=== PATIENT | female | born 1945 | race Hispanic/Latino ===

== ENCOUNTER 2017-05-13 08:16 | Emergency (ER) | payer MEDICARE ==
[~2017-05-13] VITALS: Ht 165.1 cm; Wt 80.0 kg
[~2017-05-13 08:16] MED LIST: AMLODIPINE10 MG PO; AMLODIPINE5 MG PO; CALCIUM + D600 MG PO; CIPROFLOXACN500 MG PO; FLAGYL500 MG PO; METOPROLOL TART50 MG PO; NAPROXEN500 MG PO; PRAVASTATIN SOD20 MG PO; PRAVASTATIN SOD40 MG PO; PRILOSEC20 MG/CAP PO; PROTONIX40 M2 PO; VITAMIN D3400 UNI2 PO; ZOFRAN ODT8 MG OR
[2017-05-13 09:11] LABS: HEMATOCRIT 39.9 % (37.0-47.0); HEMOGLOBIN 13.4 g/dl (12.0-16.0); IMMATURE GRANULOCYTES 0.5 % (0.0-1.0); MEAN CELL VOLUME 88.7 fL CALC (80.0-100.0); MEAN CORPUSCULAR HGB 29.8 pG CALC (26.0-32.0); MEAN CORPUSCULAR HGB CONC 33.6 g/L CALC (32.0-36.0); NEUT# 15.23 thou/uL (2.00-7.15); RED BLOOD COUNT 4.5 mill/uL (4.20-5.60); RED CELL DISTRI WIDTH 13.2 % (11.5-15.5)
[2017-05-13 09:52] LABS: ALBUMIN 3.4 g/dL (3.2-5.0); ALKALINE PHOSPHATASE 65 u/l (38-126); AMYLASE < 30 u/l (30-110); ANION GAP 13 (6-22 (CALC)); BILIRUBIN, TOTAL 0.6 mg/dL (0.0-1.4); BUN 8 mg/dL (8-23); BUN/CREATININE RATIO 9 (12-20 (CALC)); CALCIUM 8.4 mg/dL (8.4-10.2); CARBON DIOXIDE 20 mmol/l (22-30); CHLORIDE 107 mmol/l (95-108); CREATININE 0.9 mg/dL (0.5-1.0); GFR > 60 ML/MIN (>=60 (CALC)); GFR FOR AFR.AMER. > 60 ML/MIN (>=60 (CALC)); GLUCOSE 114 mg/dL (82-115); LIPASE 30 u/l (23-300); POTASSIUM 2.9 mmol/l (3.5-5.1); SGOT/AST 18 u/l (9-36); SGPT/ALT 24 u/l (11-66); SODIUM 136 mmol/l (137-146); TOTAL PROTEIN 6.3 g/dL (6.3-8.2)
[2017-05-13 09:56] LABS: C. DIFFICILE TOXIN A&B NEGATIVE (NEGATIVE)
[2017-05-13] MEDS ORDERED: AZITHROMYCIN500 MG PO (14:39)
[2017-05-13 14:43] VITALS: BP 117/83
== END 2017-05-13 14:45 | disposition home or self-care (01) ==
LOC: ED 08:16
PROVIDERS: Emergency Medicine
DX: A04.5 Campylobacter enteritis (principal); E87.6 Hypokalemia; R50.9 Fever, unspecified; M79.1 Myalgia; I10 Essential (primary) hypertension

== ENCOUNTER → 2018-12-04 | Outpatient (REF) | payer MEDICARE, MEDICAID ==
[~2018-12-04] MED LIST changes: +AZITHROMYCIN500 MG PO
[2018-12-04 09:49] LABS: HEMATOCRIT 43.2 % (37.0-47.0); HEMOGLOBIN 14.1 g/dl (12.0-16.0); IMMATURE GRANULOCYTES 0.2 % (0.0-5.0); MEAN CELL VOLUME 89.6 fL CALC (80.0-100.0); MEAN CORPUSCULAR HGB 29.3 pG CALC (26.0-32.0); MEAN CORPUSCULAR HGB CONC 32.6 g/L CALC (32.0-36.0); NEUT# 5.64 thou/uL (2.00-7.15); RED BLOOD COUNT 4.82 mill/uL (4.20-5.60); RED CELL DISTRI WIDTH 13.2 % (11.5-15.5)
[2018-12-04 09:56] LABS: ANION GAP 11 (6-22 (CALC)); BUN 12 mg/dL (8-23); BUN/CREATININE RATIO 15 (12-20 (CALC)); CARBON DIOXIDE 28 mmol/l (22-30); CHLORIDE 106 mmol/l (95-108); CREATININE 0.8 mg/dL (0.5-1.0); GFR > 60 ML/MIN (>=60 (CALC)); GFR FOR AFR.AMER. > 60 ML/MIN (>=60 (CALC)); POTASSIUM 3.6 mmol/l (3.5-5.1); SODIUM 142 mmol/l (137-146)
[2018-12-04 10:03] LABS: ACT PARTIAL THROMBO TIME 23.8 SECONDS (20.0-32.5); PROTHROMBIN TIME 10.2 SECONDS (9.0-12.5)
== END | disposition home or self-care (01) ==
LOC: CT 09:16 → LAB 09:16 → CT 10:00
PROVIDERS: ATTEND Surgery Vascular Surgery
DX: I71.4 Abdominal aortic aneurysm, without rupture (principal)

== ENCOUNTER → 2018-12-09 | Outpatient (REF) | payer MEDICARE, MEDICAID | END | disposition home or self-care (01) | LOC: CT 10:46 | PROVIDERS: ATTEND Surgery Vascular Surgery | DX: I71.4 Abdominal aortic aneurysm, without rupture (principal) | CPT/HCPCS: Q9967 ==

== ENCOUNTER 2021-09-19 06:58 | Inpatient (IN) | payer MEDICARE, MEDICAID ==
[~2021-09-19] VITALS: Ht 165.1 cm; Wt 69.0 kg
[2021-09-19] VITALS (9 sets, daily range): BP systolic 112–139; BP diastolic 58–75
[~2021-09-19 06:58] MED LIST changes: +ATORVASTATIN CA80 MG PO; +D31000 UNIT PO
--- NOTE | 2021-09-19 11:46 | NUR ---
REPORT RECEIVED FROM TOMASZ IRWIN RN.
--- NOTE | 2021-09-19 11:57 | NUR ---
PATIENT CAME FROM OR VIA BED. LICENSED WEIGHER IN ROOM TO OBTAIN VS. SAFETY PRECAUTIONS REINFROCED AND CALL LIGHT IN REACH.
--- NOTE | 2021-09-19 12:40 | NUR ---
ASSESSMENT DONE. PATIENT IS ALERT AND ORIENT X3. RESPS EVEN AND UNLABORED. PATIENT HAS BEEN USING THE INCENTIVE SPIROMETRY. ICE CHIPS PROVIDED. X4 ABD DERMABOND DRESSING DCI. PATIENT STATED PAIN IN ABD 4/10 MEDICATED PATIENT WITH DILAUDID. SAFETY PRECAUTIONS REINFORCED AND CALL LIGHT IN REACH.
--- NOTE | 2021-09-19 15:58 | NUR ---
PATIENT STATED PAIN IN ABD 01/01. MEDICATED PATIENT WITH DILAUDID. PATIENT STATED SHE FEELS BLOATED. ENCOURAGE PATIENT TO MOVE MORE IN BED. PATIENT STATED SHE WANTS TO SIT IN CHAIR LATER. FAMILY MEMBER IN ROOM .CALL LIGHT IN REACH.
--- NOTE | 2021-09-19 17:40 | NUR ---
ASSISTED PATIENT TO THE RECLINER AND PATIENT TOLERATED WELL. ABD BINDER APPLIED. PATIENT DENIES ANY OTHER NEEDS. CALL LIGHT IN REACH.
--- NOTE | 2021-09-19 19:25 | NUR ---
PATIENT ALERT AND ORIENTED. ABLE TO MAKE NEEDS KNOWN. ASSESSMENT COMPLETE. NO COMPLAINTS VOICED AT THIS TIME. MIDLINE INCISION WITH DRY SMALL AMOUNT OF BLOOD OBSERVED. ABDOMINAL BINDER REMAINS IN PLACE. ENCOURAGED PATIENT TO USE INCENTIVE SPRIOMETER. CALL LIGHT AND BELONGINGS REMAIN IN REACH.
--- NOTE | 2021-09-20 00:15 | NUR ---
PATIENT IN BED. SCHEDULED TORADOL GIVEN AND IV ABT. PATIENT VOICED CONCERN ABOUT NEEDING TO BURP AND PASS GAS AND UNABLE. REEDUCATED PATIENT ON THE NEED TO AMBULATE TO HELP MOVE HER BOWELS AROUND. THIS NURSE INSTRUCTED THE PATIENT TO USE CALL LIGHT TO CALL FOR ASSISTANCE WITH AMBULATION. PATIENT VOICED, ''IF I CANT GET HELP HERE I WILL GO TO [place]''. AMBULATED PATIENT TO RESTROOM AND BACK. PATIENT HAD LARGE BELCH. GOWN CHANGED TO NEW ONE. PROVIDED PATIENT SMALL AMOUNT OF ICE CHIPS. CALL LIGHT AND BELONGINGS REMAIN IN REACH.
--- NOTE | 2021-09-20 04:20 | NUR ---
PATIENT RESTING IN BED QUIETLY. NO SIGNS OF PAIN OR DISTRESS NOTED AT THIS TIME. CALL LIGHT AND BELONGINGS REMAIN IN REACH.
[2021-09-20 04:29] VITALS: BP 155/80
--- NOTE | 2021-09-20 04:45 | NUR ---
HELPED PATIENT AMBULATE TO RESTROOM AND BACK. TOLERATED WELL. ABLE TO KEEP A BALANCE. BURPING IN RESTROOM. CALL LIGHT AND BELONGINGS REMAIN IN REACH.
[2021-09-20 05:42] LABS: HEMATOCRIT 38.5 % (37.0-47.0); HEMOGLOBIN 12.6 g/dl (12.0-16.0); IMMATURE GRANULOCYTES 0.2 % (0.0-5.0); MEAN CELL VOLUME 94.1 fL CALC (80.0-100.0); MEAN CORPUSCULAR HGB 30.8 pG CALC (26.0-32.0); MEAN CORPUSCULAR HGB CONC 32.7 g/dL CAL (32.0-36.0); NEUT# 14.95 thou/uL (2.00-7.15); RED BLOOD COUNT 4.09 mill/uL (4.20-5.60); RED CELL DISTRI WIDTH 13.1 % (11.5-15.5)
[2021-09-20 06:01] LABS: ANION GAP 8 (6-22 (CALC)); BUN 11 mg/dL (8-23); BUN/CREATININE RATIO 13 (12-20 (CALC)); CARBON DIOXIDE 23 mmol/l (22-30); CHLORIDE 105 mmol/l (95-108); CREATININE 0.9 mg/dL (0.5-1.0); GFR > 60 ML/MIN (>=60 (CALC)); GFR FOR AFR.AMER. > 60 ML/MIN (>=60 (CALC)); POTASSIUM 3.4 mmol/l (3.5-5.1); SODIUM 133 mmol/l (137-146)
--- NOTE | 2021-09-20 07:00 | NUR ---
SHIFT CHANGE REPORT, PT ALERT AND ORIENTED RESTING IN BED, C/O ABD PAIN @ 12/01, IVF INFUSING, GASPAR CATHETER IN PLACE WITH MARQUES URINE BUT REMOVED PER MD'S ORDER, ABD BINDER IN PLACE, SCD IN PLACE, ENCOURAGED TO USE IS AT BEDSIDE EVERY HOUR WHILE AWAKE, CALL ROBIN IN REACH AND BED LOCKED IN LOWEST POSITION.
[2021-09-20 08:03] VITALS: BP 124/68
[2021-09-20 10:50] VITALS: BP 140/82
--- NOTE | 2021-09-20 12:00 | NUR ---
ASISTED WITH AMBULATION AND SAT UP IN RECLINER FOR MEAL, C/O BEING COLD, WARM BLANKETS GIVEN, CALL ROBIN IN REACH.
[2021-09-20 15:41] VITALS: BP 154/71
--- NOTE | 2021-09-20 16:00 | NUR ---
RESTING IN BED UNDER COVERS, COMFORTABLE BUT STATES SHE DOES NOT WANT TO GET OOB SHE IS COLD, CONCERN ADDRESSED TO BEST OF ABILITY, NO C/O PAIN, CALL ROBIN IN REACH.
[2021-09-20 19:00] VITALS: BP 152/80
--- NOTE | 2021-09-20 19:25 | NUR ---
PATIENT ALERT AND ORIENTED. ABLE TO MAKE NEEDS KNOWN. ASSESSMENT COMPLETE. NO SIGNS OF DISTRESS NOTED. NO COMPLAINTS OF PAIN AT THIS TIME. MIDLINE INCISION TO ABDOMEN APPEAR CDI. CALL LIGHT AND BELONGINGS REMAIN IN REACH.
--- NOTE | 2021-09-21 | NUR ---
PATIENT RESTING IN BED QUIETLY. SCHEDULED TORADOL GIVEN PER ORDERS. NO COMPLAINTS VOICED AT THIS TIME. CALL LIGHT AND BELONGINGS REMAIN IN REACH.
[2021-09-21 04:00] VITALS: BP 152/95
--- NOTE | 2021-09-21 04:15 | NUR ---
PATIENT RESTING IN BED. NO SIGNS OF DISTRESS NOTED. NO COMPLAINTS OF PAIN VOICED AT THIS TIME BY PATIENT. USES MULTIPLE LAYERS OF BLANKETS FOR COMFORT. AMBULATES TO BATHROOM NEEDED. CALL LIGHT AND BELONGINGS REMAIN IN REACH.
[2021-09-21 04:27] VITALS: BP 151/79
[2021-09-21 08:00] VITALS: BP 158/67
--- NOTE | 2021-09-21 08:00 | NUR ---
PT SLEEPING UPON ENTERING ROOM. STATES ABDOMEN IS TENDER TO TOUCH. IS ABLE TO PASS GAS BUT HAS NOT BEEN ABLE TO HAVE BM. ASSESSMENT AND VITALS ALLOWED AT THIS TIME. LUNG SOUNDS CLEAR UPPER/LOWER LOBES. BREATHING IS EVEN AND UNLABORED. BOWEL SOUNDS ARE HYPOACTIVE X4. HEART SOUNDS ARE REGULAR. IV SITE LOCATED ON THE 20G RAC INFUSING D5 1/2 NS PER EMAR ORDER. FLUSHED WITH NO RESISTANCE. FALL PRECAUTIONS ARE IN PLACE. ENCOURAGED PT TO USE CALL LIGHT. CALL LIGHT AND PERSONAL ITEMS WITHIN REACH.
--- NOTE | 2021-09-21 13:36 | NUR ---
PT LAYING DOWN UPON ENTERING ROOM. STATES NO PAIN JUST DISCOMFORT IN ABD AREA. MIDLINE INCISON IS CDI NOT SIGN OF PURULENT DRAINAGE OR ANY FOUL ODOR. IV PATENT. INFUSING D5 NS 1/2 80ML/HR WITH NO COMPLICATION. FALL PRECAUTIONS IN PLACE. CALL LIGHT WITHIN REACH.
[2021-09-21 14:16] VITALS: BP 142/74
--- NOTE | 2021-09-21 16:00 | NUR ---
PT SLEEPING. NO DISTRESS NOTED. CALL LIGHT WITHIN REACH.
[2021-09-21 19:00] VITALS: BP 156/94
--- NOTE | 2021-09-21 19:20 | NUR ---
PT RESTING IN BED, NO SIGNS OF DISTRESS NOTED, RESP EVEN AND UNLABORED. PT ALERT AND ORIENTED X3, NO EDEMA. ABD DISTENDED, MIDLINE DRESSING TO ABD CDI, X3 SMALL DRESSING, CDI. BS HYPOACTIVE NO BM OR PASSING GAS, ABD BINDER REAPPLIED. SCD'S IN PLACE, DISCUSSED INCENTIVE SPIROMETER AND ENCOURAGED IT'S USE. RN FROM DAYS AT BEDSIDE FOR PAIN MEDICATION. ASSESSMENT COMPLETED, CALL LIGHT IN REACH,CONTINUE TO MONITOR.
--- NOTE | 2021-09-21 23:29 | NUR ---
PT REQUESTING TO SIT UP IN BED, PT ASSISTED TO SIDE OF BED, NO SIGNS OF DISTRESS NOTED, RESP EVEN AND UNLABORED. PT DENIES ANY PAIN AT THIS TIME. CALL LIGHT IN REACH,CONTINUE TO MONITOR.
--- NOTE | 2021-09-22 02:00 | NUR ---
PT ASSISTED TO RECLINER, NO SIGNS OF DISTRESS NOTED, RESP EVEN AND UNLABORED. PT VOICES NO NEEDS OR COMPLAINTS AT THIS TIME, CALL LIGHT IN REACH,CONTINUE TO MONITOR.
[2021-09-22 04:27] VITALS: BP 164/80
--- NOTE | 2021-09-22 05:00 | NUR ---
PT RESTING IN BED WITH EYES CLOSED, NO SIGNS OF DISTRESS NOTED, RESP EVEN AND UNLABORED. CALL LIGHT IN REACH,CONTINUE TO MONITOR.
--- NOTE | 2021-09-22 07:31 | NUR ---
DR. MAYFIELD AT BEDSIDE DISCUSSING POC.
[2021-09-22 08:00] VITALS: BP 141/79
--- NOTE | 2021-09-22 08:00 | NUR ---
PT SITTING ON RECLINER WATCHING TV UPON ENTERING ROOM. STATES TOLERATED BREAKFAST WELL. NO N/V/PAIN AT THIS TIME. DRESSING IS CDI. IV SITE LOACTED ON THE RAC 20G FLUSHED WITH NO RESISTANCE. STATES PASSING LITTLE FLATUS BUT NO BM SO FAR. ASSESSMENT AND VITALS ALLOWED AT THIS TIME. LUNG SOUNDS CLEAR UPPER/LOWER LOBES. HEART SOUNDS REGULAR. BREATHING IS EVEN AND UNLABORED. BOWELS ARE HYPOACTIVE X4. ABD IS TENDER TO TOUCH. ABD BINDER IN PLACE. IS AT BEDSIDE. ENCOUARGED PT TO USE CALL LIGHT. FALL PRECAUTIONS IN PLACE. CALL LIGHT WITHIN REACH.
--- NOTE | 2021-09-22 12:02 | NUR ---
PT SITTING ON RECLINER EATING LUNCH AT THIS TIME. PT IS NOW ON REGULAR DIET. STATES HAVING PAIN IN ABD AREA. IV PATENT. FLUIDS HAVE BEEN DISCONTINUED. FLUSHED WITH NO RESISTANCE. FALL PRECAUTIONS IN PLACE. STATES NO OTHER NEEDS AT THIS TIME. CALL LIGHT WITHIN REACH.
--- NOTE | 2021-09-22 12:12 | NUR ---
PT STATES PASSING VERY LITTLE FLATUS. TOLERATED REGULAR FOOD WELL. NO N/V AT THIS TIME. CALL LIGHT WITHIN REACH
[2021-09-22 14:35] VITALS: BP 136/66
--- NOTE | 2021-09-22 15:57 | NUR ---
PT LAYING IN BED WATCHING TV AT THIS TIME. SCD ON AND IN PLACE. STATES NO PAIN AT THIS TIME. IV PATENT, SALINE LOCKED. DRESSING IS CDI WITH ABD BINDER IN PLACE. PT STATES STILL PASSING LITTLE FLATUS BUT NO BM. IS AT BEDSIDE. STATES NO OTHER NEEDS AT THIS TIME. CALL LIGHT WITHIN REACH.
[2021-09-22 19:00] VITALS: BP 159/77
--- NOTE | 2021-09-22 19:15 | NUR ---
PT RESTING IN BED, NO SIGNS OF DISTRESS NOTED, RESP EVEN AND UNLABORED. PT ALERT AND ORIENTED X3, DISCUSSED POC, PT STATES SHE HAS BEEN AMBULATING AND HAS PASSED GAS, NO BM. BS HYPOACTIVE X4, MIDLINE DRESSING TO ABD CDI, X3 SMALL DRESSINGS CDI, ABDOMINAL BINDER REAPPLIED, IS AT BEDSIDE, ENCOURAGED IT'S USE. ASSESSMENT COMPLETED, CALL LIGHT IN REACH,CONTINUE TO MONITOR.
--- NOTE | 2021-09-22 19:35 | NUR ---
PT AMBULATING IN HALLWAY, TOLERATING WELL. CONTINUE TO MONITOR.
--- NOTE | 2021-09-22 20:37 | NUR ---
PT BACK IN BED, C/O PAIN 3/10 AFTER AMBULATING, PT ALSO C/O NAUSEA, PT MEDICATED PER NOV, CALL LIGHT IN REACH,CONTINUE TO MONITOR.
--- NOTE | 2021-09-22 23:33 | NUR ---
PT RESTING IN BED, NO SIGNS OF DISTRESS NOTED, RESP EVEN AND UNLABORED. CALL LIGHT IN REACH,CONTINUE TO MONITOR.
[2021-09-23 04:00] VITALS: BP 159/80
--- NOTE | 2021-09-23 04:00 | NUR ---
PT C/O NAUSEA, MEDICATED PER MAR, ASSISTED PT TO RECLINER AT BEDSIDE, CALL LIGHT IN REACH,CONTINUE TO MONITOR.
[2021-09-23 05:31] LABS: HEMATOCRIT 39.3 % (37.0-47.0); HEMOGLOBIN 13.1 g/dl (12.0-16.0); IMMATURE GRANULOCYTES 0.3 % (0.0-5.0); MEAN CELL VOLUME 92.5 fL CALC (80.0-100.0); MEAN CORPUSCULAR HGB 30.8 pG CALC (26.0-32.0); MEAN CORPUSCULAR HGB CONC 33.3 g/dL CAL (32.0-36.0); NEUT# 7.71 thou/uL (2.00-7.15); RED BLOOD COUNT 4.25 mill/uL (4.20-5.60); RED CELL DISTRI WIDTH 12.8 % (11.5-15.5)
[2021-09-23 05:36] LABS: ANION GAP 9 (6-22 (CALC)); BUN 13 mg/dL (8-23); BUN/CREATININE RATIO 13 (12-20 (CALC)); CARBON DIOXIDE 24 mmol/l (22-30); CHLORIDE 99 mmol/l (95-108); GFR 54 ML/MIN (>=60 (CALC)); GFR FOR AFR.AMER. > 60 ML/MIN (>=60 (CALC)); POTASSIUM 3.7 mmol/l (3.5-5.1); SODIUM 129 mmol/l (137-146)
--- NOTE | 2021-09-23 06:09 | NUR ---
PT SITTING IN RECLINER, DENIES ANY NEEDS OR COMPLAINTS AT THIS TIME, CALL LIGHT IN REACH,CONTINUE TO MONITOR.
[2021-09-23 08:00] VITALS: BP 150/80
--- NOTE | 2021-09-23 08:00 | NUR ---
PT SITTING IN RECLINER UPON ENTERING ROOM. PT NOW ON REGULAR DIET. STATES IS ABLE TO TOLERATE FOOD. STATES HAS BEEN HAVING MORE FREQUENT FLATUS BUT HAS HAS NOT HAD BM YET. ASSESSMENT AND VITALS ALLOWED AT THIS TIME. LUNG SOUNDS CLEAR UPPER/LOWER L&R LOBES. HEART SOUNDS ARE REGULAR. BOWEL SOUNDS ARE ACTIVE X4. RADIAL AND PEDAL PULSE STRONG. ABD DRESSING IS CDI WITH ABD BINDER IN PLACE. IS AT BEDSIDE. SCD AT BEDSIDE, DENIES HAVING THEM ON AT THIS MOMENT. IV SITE LOCATED RAC 20G, SALINE LOCKED. FLUSHED WITH NO RESISTANCE. DENIES PAIN AT THIS MOMENT. ENCOURAGED PT TO USE CALL LIGHT. CALL LIGHT WITHIN REACH. FALL PRECAUTIONS ARE IN PLACE.
[2021-09-23] MEDS ORDERED: PERCOCET 5/325M1 TAB PO (09:12)
[2021-09-23] MEDS ORDERED: ONDANSETRON4 MG PO (09:13)
--- NOTE | 2021-09-23 09:32 | NUR ---
DR. BATES AND YUDELKA AT BEDSIDE
--- NOTE | 2021-09-23 12:37 | NUR ---
Discharge instructions given. Patient verbalizes understanding of same. Discharged in stable condition via Wheelchair to Home with staff AND FAMILY MEMBER . All belongings sent with pt. REMOVED IV EVERYTHING INTACT. PT UNDERSTANDS TO COME BACK IF COMPLAINTS WORSEN.
== END 2021-09-23 13:37 | disposition home or self-care (01) | DRG 909 ==
LOC: ENDO 06:58 → ORM 08:00 → ENDO 08:00 → PO 08:00 → ORM 09:30 → MS2 12:07
PROVIDERS: ADMIT Surgery; ATTEND Surgery
PROC: 0DBN0ZZ Excision of Sigmoid Colon, Open Approach (ICD-10-PCS; principal; 2021-09-19)
PROC: 0DJD4ZZ Inspection of Lower Intestinal Tract, Percutaneous Endoscopic Approach (ICD-10-PCS; 2021-09-19)
PROC: 0DBN8ZX Excision of Sigmoid Colon, Via Natural or Artificial Opening Endoscopic, Diagnostic (ICD-10-PCS; 2021-09-19)
DX: K91.71 Accidental puncture and laceration of a digestive system organ or structure during a digestive system procedure (principal); K57.30 Diverticulosis of large intestine without perforation or abscess without bleeding; K63.5 Polyp of colon; I10 Essential (primary) hypertension; Y83.8 Other surgical procedures as the cause of abnormal reaction of the patient, or of later complication, without mention of misadventure at the time of the procedure; Y92.234 Operating room of hospital as the place of occurrence of the external cause; Z12.11 Encounter for screening for malignant neoplasm of colon; Z80.0 Family history of malignant neoplasm of digestive organs; Z90.721 Acquired absence of ovaries, unilateral
CPT/HCPCS: J0131; J1650

== ENCOUNTER 2021-10-15 18:06 | Inpatient (IN) | payer MEDICARE, MEDICAID ==
[~2021-10-15] VITALS: Ht 165.1 cm; Wt 63.0 kg
[~2021-10-15 18:06] MED LIST changes: +ONDANSETRON4 MG PO; +PERCOCET 5/325M1 TAB PO
--- NOTE | 2021-10-15 19:00 | NUR ---
PT TO ROOM VIA WHEELCHAIR, ACCOMPANIED BY
[2021-10-15 20:26] LABS: HEMATOCRIT 32.7 % (37.0-47.0); HEMOGLOBIN 10.7 g/dl (12.0-16.0); IMMATURE GRANULOCYTES 1.1 % (0.0-5.0); MEAN CELL VOLUME 92.1 fL CALC (80.0-100.0); MEAN CORPUSCULAR HGB 30.1 pG CALC (26.0-32.0); MEAN CORPUSCULAR HGB CONC 32.7 g/dL CAL (32.0-36.0); NEUT# 17.99 thou/uL (2.00-7.15); RED BLOOD COUNT 3.55 mill/uL (4.20-5.60); RED CELL DISTRI WIDTH 13.3 % (11.5-15.5)
--- NOTE | 2021-10-15 20:40 | NUR ---
PT TO IMAGING VIA STRETCHER IN STABLE CONDITION.
[2021-10-15 20:47] LABS: ALKALINE PHOSPHATASE 172 u/l (38-126); AMYLASE 42 u/l (30-110); ANION GAP 10 (6-22 (CALC)); BILIRUBIN, TOTAL 1.2 mg/dL (0.0-1.4); BUN 10 mg/dL (8-23); BUN/CREATININE RATIO 18 (12-20 (CALC)); CARBON DIOXIDE 35 mmol/l (22-30); CHLORIDE 87 mmol/l (95-108); CREATININE 0.6 mg/dL (0.5-1.0); GFR > 60 ML/MIN (>=60 (CALC)); GFR FOR AFR.AMER. > 60 ML/MIN (>=60 (CALC)); LIPASE 24 u/l (23-300); SGOT/AST 66 u/l (9-36); SODIUM 129 mmol/l (137-146); TOTAL PROTEIN 7.1 g/dL (6.3-8.2)
[2021-10-15 20:49] LABS: POTASSIUM 2.5 mmol/l (3.5-5.1)
[2021-10-15 20:59] LABS: MYOGLOBIN 38 ng/mL (0 - 62)
--- NOTE | 2021-10-15 21:50 | NUR ---
PT RESTING AND STATES MORE COMFORTABLE NOW. TO INSPECTION, PT WITH HEALING INCISION TO MID-LOWER ABDOMEN WHERE SHE HAD SURGERY ABOUT A MONTH AGO. PT REPORTS WATERY STOOLS TODAY AND BLACK AND STINKY. NOTIFIED.
--- NOTE | 2021-10-15 22:04 | NUR ---
REPORT GIVEN TO ANDRIY GARCIA FOR TRANSITION OF CARE
--- NOTE | 2021-10-15 23:00 | NUR ---
[place] [facility] [place]STOOL SAMPLES.
--- NOTE | 2021-10-15 23:15 | NUR ---
PT VOIDED BUT AFTER VOIDING PASSED A SMALL AMT OF ADA BLOOD. NOT CERTAIN WHERE THE BLOOD CAME FROM. DR NOTIFIED. IN TO EXAMINE URINE IN COMMODE. ORDERED STRAIGHT CATH.
[2021-10-15 23:51] LABS: URINE BILIRUBIN - DIPSTICK NEGATIVE (NEGATIVE); URINE BLOOD DIPSTICK TRACE-LYSED (NEGATIVE); URINE COLOR YELLOW; URINE GLUCOSE - DIPSTICK NEGATIVE (NEGATIVE); URINE KETONE >=80 mg/dL (NEGATIVE); URINE LEUK ESTERASE NEGATIVE (NEGATIVE); URINE PROTEIN - DIPSTICK NEGATIVE (NEG-TRACE); URINE SPECIFIC GRAVITY 1.015
[2021-10-15 23:55] LABS: URINE NITRITE - DIPSTICK NEGATIVE (Negative)
--- NOTE | 2021-10-16 00:56 | NUR ---
VALUABLES CHECK LIST COMPLETED. MED RECONCILE COMPLETED. ATTEMPTED TO CALL REPORT. WILL CALL BACK WHEN READY. IV FLAGYL UP.
--- NOTE | 2021-10-16 01:01 | NUR ---
PT FEELS BETTER. REPORT TO LICO/MED-SURG.
--- NOTE | 2021-10-16 01:20 | NUR ---
TO ROOM 273 VIA W/C WITH IVF/ANTIBIOTICS INFUSING VIA PUMP. PT HAS POCKET MONITOR.
[2021-10-16 01:36] VITALS: BP 161/75
--- NOTE | 2021-10-16 02:23 | NUR ---
PATIENT ADMITTED FROM ER VIA WHEELCHAIR WITH ER STAFF IN ATTENDANCE. PATIENT ABLE TO TRANSFER TO THE BED. AWAKE ALERET AND ORIENTEDX3. PATIENT C/O NAUSEA AND ABD PAIN-STATES ABD PAIN THAT RADIATES FROM ABD TO LEFT SIDE OF BACK. MEDICATED WITH ZOFRAN 4MG IVP FOR NAUSEA AND WITH DILAUDID 1MG IVP FOR 9/10 ABD PAIN. IVF SITE TO RAC INTACT WITH IVF PATENT AND INFUSING ORDERED. SITE IS HEALTHY WITH GOOD BLOOD RETURN. TELE MONITOR IN PLACE READING SR-98. PATIENT ASSISTED OOB TO BSC TO VOID 200CC OF PINK TINGED URINE. ALSO SMALL AMT OF PINK DRAINAGE ON TOILET PAPER. STATES THAT THIS IS NEW-JUST STARTED TONIGHT. STATES THAT SHE HAS BEEN HAVE LOSE DIARHEA STOOLS SINCE COMING HOME FROM HOSPITAL OCT 03. PATIENT HAD ABD SURGERY WITH DR. LEAVITT THE END OF AUG AFTER HAVING COLONOSCOPY. ABD IS SOFT WITH ACTIVE BS. MIDLINE INCISION IS HEALING WELL. WELL APPROXIMATED. LUNGS ARE CLEAR. NO PERIPHEWRAL EDEMA NOTED. PULSES ARE PALPABLE. ORIENTED PATIENT TO ROOM AND SURROUNDINGS. INSTRUCTED ON USE OF NURSE CALL LIGHT SYSTEM AND TV REMOTE. SAFETY PRECAUTIONS REINFORCED. CALL LIGHT IN REACH, WILL CONT TO MONITOR.
--- NOTE | 2021-10-16 03:32 | NUR ---
PATIENT INCONT OF SMALL AMT OF URINE-STATES THAT SHE HAS HAVING URINE AND STOOL INCONT SINCE SURGERY. ASSISTED WITH PERICARE AND MESH PANTY WITH LARGE PERIPAD IN PLACE. STATES THAT HER PAIN IS BETTER SINCE PAIN MED. IVF PATENT AND INFUSING VIA RAC SITE. TELE MONITOR IN PLACE. SAFETY PRECAUTIONS REINFORCED, CALL LIGHT IN REACH. WILL CONT TO MONITOR.
[2021-10-16 04:00] VITALS: BP 162/80
--- NOTE | 2021-10-16 04:24 | NUR ---
PATIENT C/O ABD PAIN AGAIN-TOO EARLY FOR MORE PAIN MEDS AT THIS TIME. PATIENT WAS INSTRUCTED REGUARDING PAIN MEDS AT THIS TIME. VERBALIZES UNDERSTANDING. IVF NS HUNG AND INFUSING AT 100CC/HR VIA RAC SITE. SITE REMAINS HEALTHY. DAFETY PRECAUTIONS REINFORCED. CALL LIGHT IN REACH. WILL CONT TO MONITOR.
[2021-10-16 05:38] LABS: HEMATOCRIT 29.6 % (37.0-47.0); HEMOGLOBIN 9.6 g/dl (12.0-16.0); MEAN CELL VOLUME 92.8 fL CALC (80.0-100.0); MEAN CORPUSCULAR HGB 30.1 pG CALC (26.0-32.0); MEAN CORPUSCULAR HGB CONC 32.4 g/dL CAL (32.0-36.0); RED BLOOD COUNT 3.19 mill/uL (4.20-5.60); RED CELL DISTRI WIDTH 13.6 % (11.5-15.5)
[2021-10-16 06:17] LABS: ALBUMIN 2.4 g/dL (3.2-5.0); ALKALINE PHOSPHATASE 139 u/l (38-126); BILIRUBIN, TOTAL 0.9 mg/dL (0.0-1.4); BUN 7 mg/dL (8-23); BUN/CREATININE RATIO 14 (12-20 (CALC)); CARBON DIOXIDE 29 mmol/l (22-30); CHLORIDE 96 mmol/l (95-108); CREATININE 0.5 mg/dL (0.5-1.0); GFR > 60 ML/MIN (>=60 (CALC)); GFR FOR AFR.AMER. > 60 ML/MIN (>=60 (CALC)); MAGNESIUM 1.4 mg/dL (1.6-2.3); SGOT/AST 46 u/l (9-36); SODIUM 131 mmol/l (137-146); TOTAL PROTEIN 5.9 g/dL (6.3-8.2)
[2021-10-16 06:31] LABS: ANION GAP 9 (6-22 (CALC)); POTASSIUM 3.4 mmol/l (3.5-5.1)
--- NOTE | 2021-10-16 09:22 | NUR ---
DR. PRAJAPATI AND YUDELKA ROSARIO AT BEDSIDE DISCUSSING POC
--- NOTE | 2021-10-16 09:30 | NUR ---
ASSESSMENT AND VITALS ALLOWED AT THIS TIME. PT STATES IN PAIN. ABD AREA. MIDLINE INCSION IS CDI. PT STATES HAS HAD SOME INCONTINENCE WHEN URINATING AND BOWEL MOVEMENTS. NOTIFED MD ABOUT PT PAIN. PT ALSO VOIDED LIGHT PINK URINE WITH TINY BLOOD CLOTS MD ALSO NOTIFED. LUNG SOUNDS ARE CLEAR UPPER/LOWER LOBES ANTERIOR/ POSTERIOR. HEART SOUNDS ARE REGULAR. TELE MONITOR IN PLACE, CONTINOUS MONITORING BY ED. IV: RAC 20G INFUSING NS PER EMAR. FLUSHED WITH NO RESISTANCE AND ABLE TO GET BLOOD RETURN. FALL/SAFEY PRECAUTIONS IN PLACE. CALL LIGHT IS WITHIN REACH.
[2021-10-16 10:39] VITALS: BP 150/74
--- NOTE | 2021-10-16 15:08 | NUR ---
PT RESTING WITH EYES CLOSED UPON ENTERING ROOM. STATES PAIN MEDICATION WORKED. NO PAIN AT THIS TIME. TELE MONITOR IN PLACE. IV PATENT. FALL/SAFTEY PRECAUTIONS IN PLACE. CALL LIGHT WITHIN REACH.
[2021-10-16 15:41] VITALS: BP 128/68
--- NOTE | 2021-10-16 16:37 | NUR ---
PT WITH FAMILY MEMBER AT BEDSIDE. STATES NO PAIN AT THIS TIME. IV PATENT. TELE MONITOR IN PLACE. FALL/SAFTEY PRECAUTIONS IN PLACE. CALL LIGHT WITHIN REACH
--- NOTE | 2021-10-16 19:00 | NUR ---
REPORT RECEIVED FROM Es SANTOYO RN, CARE OF PT ASSUMED QT THIS TIME.
--- NOTE | 2021-10-16 19:00 | NUR ---
REPORT RECEIVED FROM Felton Marcus RN, CARE OF PT ASSUMED QT THIS TIME.
[2021-10-16 20:21] VITALS: BP 158/72
--- NOTE | 2021-10-16 22:15 | NUR ---
PT REQUEST TO USE BSC. PT ASSISTED UP TO BSC AND TO REMOVE BRIEF. PT VOIDS AND ASSISTED BACK TO BED. PT REPORTS INCONTINENCE, POINTED OUT TO PATIENT THAT BRIEF IS CURRENTLY DRY AND SHE WAS ABLE TO ASK TO GET UP TO BSC TO VOID WITHOUT ANY INCONTINENCE. PT ENCOURAGED TO CON'T TO TRY TO VOID IN BSC AND NOT IN BED.
[2021-10-17] VITALS: BP 134/61
[2021-10-17 05:20] VITALS: BP 148/76
[2021-10-17 05:52] LABS: HEMATOCRIT 29.3 % (37.0-47.0); HEMOGLOBIN 9.7 g/dl (12.0-16.0); MEAN CELL VOLUME 92.1 fL CALC (80.0-100.0); MEAN CORPUSCULAR HGB 30.5 pG CALC (26.0-32.0); MEAN CORPUSCULAR HGB CONC 33.1 g/dL CAL (32.0-36.0); RED BLOOD COUNT 3.18 mill/uL (4.20-5.60); RED CELL DISTRI WIDTH 13.4 % (11.5-15.5)
[2021-10-17 06:02] LABS: ALBUMIN 2.4 g/dL (3.2-5.0); ALKALINE PHOSPHATASE 131 u/l (38-126); ANION GAP 9 (6-22 (CALC)); BUN 5 mg/dL (8-23); BUN/CREATININE RATIO 10 (12-20 (CALC)); CARBON DIOXIDE 29 mmol/l (22-30); CHLORIDE 94 mmol/l (95-108); CREATININE 0.5 mg/dL (0.5-1.0); GFR > 60 ML/MIN (>=60 (CALC)); GFR FOR AFR.AMER. > 60 ML/MIN (>=60 (CALC)); MAGNESIUM 1.7 mg/dL (1.6-2.3); POTASSIUM 3.1 mmol/l (3.5-5.1); SGOT/AST 38 u/l (9-36); SODIUM 129 mmol/l (137-146); TOTAL PROTEIN 5.9 g/dL (6.3-8.2)
[2021-10-17 07:30] VITALS: BP 142/76
--- NOTE | 2021-10-17 07:30 | NUR ---
PATIENT RESTING IN BED AT THIS TIME. PATIENT C/O LOWER BACK PAIN AND WAS PREVIOUSLY MEDICATED BY PREVIOUS SHIFT NURSE. PATIENT PRESENTS WIHT ABDOMINAL INCISIONAL SITE THAT IS DRY AND INTACT AT THIS TIME AND APPROXIMATED. LUNG YOUNG ARE CLEAR. SIDERAILS ARE UP X 2 CALL LIGHT WITHIN [facility] TELE MONIOTOR ON AND BEING MONITORED BY ED. WILL CONTINUE TO MONITOR.
--- NOTE | 2021-10-17 11:16 | NUR ---
PATIENT LAYING IN BED AT THIS TIME. PATIENT DENIES ANY NEEDS CURRENLTY. PATIENT REMAINS NPO UNTIL ULTRASOUND IS COMPLETED. SIDERAILS ARE UP CALL LIGHT IS WITHIN REACH. TELE MONITOR ON WILL CONTINUE TO BE MONIOTORED.
--- NOTE | 2021-10-17 11:50 | NUR ---
PATIENT SITTING UP IN CHAIR AT THIS TIME PATIENT GIVEN 4MG OF IV ZOFRAN DUE TO COMPLAINT OF NASEUA AT THIS TIME. WILL CONTINUE TO MONITOR.
[2021-10-17 14:01] VITALS: BP 142/76
[2021-10-17 19:00] VITALS: BP 140/65
--- NOTE | 2021-10-17 19:44 | NUR ---
PATIENT RESTING IN BED QUIETLY. ASSESSMENT COMPLETE. NO SIGNS OF DISTRESS NOTED. CALL LIGHT AND BELONGINGS REMAIN IN REACH.
--- NOTE | 2021-10-18 00:40 | NUR ---
RESTING IN BED QUIETLY. NO COMPLAINTS VOICED AT THIS TIME. NO SIGNS OF DISTRESS NOTED. PATIENT NPO. NO FOOD OR BEVERAGES AT BEDSIDE. CALL LIGHT AND BELONGINGS WITHIN REACH.
[2021-10-18 04:00] VITALS: BP 143/82
--- NOTE | 2021-10-18 04:20 | NUR ---
PATIENT RESTING IN BED QUIETLY. NO COMPLAINTS VOICED AT THIS TIME. WILL CONTINUE TO MONITOR. REMAINS NPO. CALL LIGHT AND BELONGINGS REMAIN IN REACH.
[2021-10-18 06:10] LABS: HEMATOCRIT 28.8 % (37.0-47.0); HEMOGLOBIN 9.4 g/dl (12.0-16.0); MEAN CELL VOLUME 92.9 fL CALC (80.0-100.0); MEAN CORPUSCULAR HGB 30.3 pG CALC (26.0-32.0); MEAN CORPUSCULAR HGB CONC 32.6 g/dL CAL (32.0-36.0); RED BLOOD COUNT 3.1 mill/uL (4.20-5.60); RED CELL DISTRI WIDTH 13.7 % (11.5-15.5)
[2021-10-18 06:40] LABS: ANION GAP 10 (6-22 (CALC)); BUN 5 mg/dL (8-23); BUN/CREATININE RATIO 10 (12-20 (CALC)); CARBON DIOXIDE 26 mmol/l (22-30); CHLORIDE 95 mmol/l (95-108); CREATININE 0.5 mg/dL (0.5-1.0); GFR > 60 ML/MIN (>=60 (CALC)); GFR FOR AFR.AMER. > 60 ML/MIN (>=60 (CALC)); MAGNESIUM 1.5 mg/dL (1.6-2.3); POTASSIUM 3.2 mmol/l (3.5-5.1); SODIUM 128 mmol/l (137-146)
[2021-10-18 07:30] VITALS: BP 139/69
--- NOTE | 2021-10-18 07:30 | NUR ---
PATIENT SITTING IN RECLINER AT THIS TIME ALERT AND ORIENTED X 4 TELE MONITOR ON AT THIS TIME BEING MONITORED BY ED. RN MATERNAL CHILD DONE SEE INTERVENTIONS. CALL LIGHT WITHIN REACH DENIES ANY PAIN AT THIS TIME. NPO CURRENTLY DUE TO ULTRASOUND TO BE DONE WILL CONTINUE TO MONITOR.
--- NOTE | 2021-10-18 11:15 | NUR ---
PATIENT LAYING IN BED AT THIS TIME DENEIS ANY NEEDS CURRENTLY. DR. MAYFIELD IN TO SEE PATIENT AT THIS TIME. SIDERAILS ARE UP CALL LIGHT IS WIHTIN REACH. WILL CONTINUE TO MONITOR. TELE IN PLACE.
[2021-10-18 11:53] VITALS: BP 138/73
--- NOTE | 2021-10-18 15:20 | NUR ---
PATIENT HAD LARGE INCONTINENT LOOSE STOOL AND WAS ASSISTED TO BEDSIDE COMMODE TO HAVE BOWEL MOVEMENT. BED LINENS CHANGED AT THIS TIME AND PATIENT ENCOURAGED TO CONTINUE TO DRINK BOWEL PREP. WILL CONTINUE TO MONITOR.
[2021-10-18 15:50] VITALS: BP 130/76
--- NOTE | 2021-10-18 15:57 | NUR ---
PATIENT RESTING IN BED AT THIS TIME. PATIENT IS CURRENTLY DRINKING GOLYTE AT THIS TIME. PATIENT TELE MONITOR IN PLACE AND BEING MONITORED BY ED. WILL CONTINUE TO MONITOR.
[2021-10-18 19:00] VITALS: BP 149/68
--- NOTE | 2021-10-18 20:00 | NUR ---
PATIENT APPEARED TO BE SLEEPING ON HER LEFT SIDE UPON ENTERING ROOM. ASSESSMENT COMPLETE. NO COMPLAINTS OF PAIN VOICED BY PATIENT AT THIS TIME. NO SIGNS OF DISTRESS. CALL LIGHT AND BELONGINGS REMAIN IN REACH.
--- NOTE | 2021-10-18 23:40 | NUR ---
PATIENT LAYING IN BED ON HER SIDE. NO COMPLAINTS OF PAIN VOICED AT THIS TIME. NO SIGNS OF DISTRESS. PATIENT UTILIZES CALL LIGHT WHEN SHE NEEDS ASSISTANCE WITH INCONTINENCE CARE. PATIENT DID RECEIVE PRN ZOFRAN ORDERED DUE TO EPISODE OF INCREASED NAUSEA. MEDICATION WAS EFFECTIVE. CALL LIGHT AND BELONGINGS REMAIN IN REACH.
[2021-10-19 04:00] VITALS: BP 143/73
--- NOTE | 2021-10-19 04:30 | NUR ---
PATIENT OBSERVED LAYING ON HER LEFT SIDE. NO SIGNS OF PAIN OR DISTRESS NOTED AT THIS TIME. CALL LIGHT AND BELONGINGS REMAIN IN REACH.
[2021-10-19 05:50] LABS: HEMATOCRIT 27.8 % (37.0-47.0); HEMOGLOBIN 9.2 g/dl (12.0-16.0); MEAN CELL VOLUME 92.4 fL CALC (80.0-100.0); MEAN CORPUSCULAR HGB 30.6 pG CALC (26.0-32.0); MEAN CORPUSCULAR HGB CONC 33.1 g/dL CAL (32.0-36.0); RED BLOOD COUNT 3.01 mill/uL (4.20-5.60); RED CELL DISTRI WIDTH 13.6 % (11.5-15.5)
[2021-10-19 05:58] LABS: ANION GAP 12 (6-22 (CALC)); BUN 5 mg/dL (8-23); BUN/CREATININE RATIO 11 (12-20 (CALC)); CARBON DIOXIDE 24 mmol/l (22-30); CHLORIDE 98 mmol/l (95-108); CREATININE 0.5 mg/dL (0.5-1.0); GFR > 60 ML/MIN (>=60 (CALC)); GFR FOR AFR.AMER. > 60 ML/MIN (>=60 (CALC)); MAGNESIUM 1.4 mg/dL (1.6-2.3); POTASSIUM 3.1 mmol/l (3.5-5.1); SODIUM 131 mmol/l (137-146)
--- NOTE | 2021-10-19 07:00 | NUR ---
REPORT FROM AYUSH ASHRAF. ASSUMED PT CARE.
--- NOTE | 2021-10-19 07:34 | NUR ---
MORTGAGE COUNSELOR ENTERED THE PT'S ROOM AND THE PT WAS RECLINING IN THE BED AND ASKED "CAN I BE CLEANED UP?" PROVIDED LINEN CHANGE AND LYNDA CARE. MORTGAGE COUNSELOR ASSISTED PT TO CHAIR WITH STAND BY ASSIST. PT AMBULATED WITH STEADY GAIT. SKIN INTACT. IV SITE APPEARS HEALTHY AND IV FLUIDS INFUSING WITHOUT DIFFICULTY. PT DENIES ANY PAIN OR DISCOMFORT. NO APPARENT DISTRESS NOTED. NO CURRENT WANTS OR NEEDS. CALL LIGHT WITHIN REACH. WILL CONTINUE TO MONITOR.
[2021-10-19 07:40] VITALS: BP 147/77
--- NOTE | 2021-10-19 09:45 | NUR ---
PHYSICIAN AT BEDSIDE TO DISCUSS POC.
--- NOTE | 2021-10-19 13:57 | NUR ---
PT C/O NAUSEA. MEDICATED AT THIS TIME WITH PRN ZOFRAN. VISITOR AT BEDSIDE. NO APPARENT DISTRESS NOTED. CALL LIGHT WITHIN REACH. WILL CONTINUE TO MONITOR.
--- NOTE | 2021-10-19 15:37 | NUR ---
PT INCONTINENT OF BM. PERICARE PROVIDED. BARRIER CREAM APPLIED. ASSISTED PT WITH REPOSITIONED FOR COMFORT. CALL LIGHT WITHIN REACH. WILL CONTINUE TO MONITOR.
[2021-10-19 15:45] VITALS: BP 129/64
--- NOTE | 2021-10-19 19:15 | NUR ---
REPORT RECEIVED FROM Jos HUMPHRIES LPN, PATIENT CARE ASSUMED AT THIS TIME.
[2021-10-19 19:25] VITALS: BP 118/65
--- NOTE | 2021-10-19 20:20 | NUR ---
PRATIK COMPLETED. LARGE INCONTINENT EPISODE, LYNDA CARE PROVIDED BY MARIBELL GRIER. CALL LIGHT AND BEDSIDE TABLE WITHIN REACH.
--- NOTE | 2021-10-19 22:00 | NUR ---
MEDICATIONS ADMISNTERED PER EMAR. SEE EMAR.
[2021-10-20] VITALS (7 sets, daily range): BP systolic 124–140; BP diastolic 60–67
--- NOTE | 2021-10-20 | NUR ---
PATIENT COMPLAINING OF PAIN 5/10. ADVISED PT SHE IS TO BE NPO OF MIDNIGHT. PT AGREEABLE, MEDICATED PER EMAR, SEE EMAR. CALL LIGHT AND BEDSIDE TABLE WITHIN REACH.
--- NOTE | 2021-10-20 04:45 | NUR ---
BLOOD DRAWN FOR TYPE AND SCREEN A THIS TIME. WRITTER TO WITNESS, PT TOLERATED WELL.
[2021-10-20 05:16] LABS: HEMATOCRIT 28.5 % (37.0-47.0); HEMOGLOBIN 9.2 g/dl (12.0-16.0); MEAN CELL VOLUME 92.2 fL CALC (80.0-100.0); MEAN CORPUSCULAR HGB 29.8 pG CALC (26.0-32.0); MEAN CORPUSCULAR HGB CONC 32.3 g/dL CAL (32.0-36.0); RED BLOOD COUNT 3.09 mill/uL (4.20-5.60); RED CELL DISTRI WIDTH 13.6 % (11.5-15.5)
[2021-10-20 05:36] LABS: ANION GAP 10 (6-22 (CALC)); BUN 4 mg/dL (8-23); BUN/CREATININE RATIO 8 (12-20 (CALC)); CARBON DIOXIDE 25 mmol/l (22-30); CHLORIDE 100 mmol/l (95-108); CREATININE 0.4 mg/dL (0.5-1.0); GFR > 60 ML/MIN (>=60 (CALC)); GFR FOR AFR.AMER. > 60 ML/MIN (>=60 (CALC)); MAGNESIUM 2.1 mg/dL (1.6-2.3); POTASSIUM 3.5 mmol/l (3.5-5.1); SODIUM 131 mmol/l (137-146)
--- NOTE | 2021-10-20 09:57 | NUR ---
PT LEFT VIA STRETCHER TO OR WITH ANDRIY STRANGE. CIPRO WAS TAKEN WITH ANDRIY STRANGE TO ADMINISTER DOWN STAIRS.
--- NOTE | 2021-10-20 12:00 | NUR ---
PT IN OR FOR SURGERY
--- NOTE | 2021-10-20 15:19 | NUR ---
PT HAS NOT HAD FLAGYL DUE TO BEING IN OR AT THIS TIME.
--- NOTE | 2021-10-20 15:40 | NUR ---
PT ARRIVED VIA STRETCHER WITH ANDRIY HASSAN AND ANDRIY ELAINE FROM OR AT THIS TIME. ABD BINDER IN PLACE WITH DRESSING CDI. PT A&OX3. Call light within reach. fall/safety percautions in place.
[2021-10-21] VITALS (7 sets, daily range): BP systolic 110–126; BP diastolic 55–65
--- NOTE | 2021-10-21 03:14 | NUR ---
PATIENT REPOSITIONED IN BED. PATIENT WITH IVF PATENT AND INFUSING VIA LEFT WRIST SITE AT 100CC/HR. SITE REMAINS HEALTHY. ABD DRESSING CDI AT TH IS TIME WITH ABD BINDER IN PLACE. MAGNUS TO RIGHT ABD INTACT AND DRAINING SEROSANGUINOUS FLUID. GASPAR PATENT AND DRAINING YELLOW URINE. MEDICATED FOR NAUSEA WITH ZOFRAN 4MG IVP AND FOR POST-OP PAIN WITH DILAUDID 1MG IVP. SAFETY PRECAUTIONS REINFORCED. CALL LIGHT IN REACH. WILL CONT TO MONITOR.
[2021-10-21 05:53] LABS: ALKALINE PHOSPHATASE 69 u/l (38-126); ANION GAP 10 (6-22 (CALC)); BILIRUBIN, TOTAL 0.9 mg/dL (0.0-1.4); BUN 6 mg/dL (8-23); BUN/CREATININE RATIO 9 (12-20 (CALC)); CARBON DIOXIDE 24 mmol/l (22-30); CHLORIDE 102 mmol/l (95-108); CREATININE 0.7 mg/dL (0.5-1.0); GFR > 60 ML/MIN (>=60 (CALC)); GFR FOR AFR.AMER. > 60 ML/MIN (>=60 (CALC)); POTASSIUM 3.5 mmol/l (3.5-5.1); SGOT/AST 18 u/l (9-36); SODIUM 133 mmol/l (137-146)
[2021-10-21 05:54] LABS: HEMATOCRIT 27.9 % (37.0-47.0); HEMOGLOBIN 8.9 g/dl (12.0-16.0); IMMATURE GRANULOCYTES 1.2 % (0.0-5.0); MEAN CELL VOLUME 93.9 fL CALC (80.0-100.0); MEAN CORPUSCULAR HGB CONC 31.9 g/dL CAL (32.0-36.0); NEUT# 15.74 thou/uL (2.00-7.15); RED BLOOD COUNT 2.97 mill/uL (4.20-5.60); RED CELL DISTRI WIDTH 13.7 % (11.5-15.5)
[2021-10-21 06:01] LABS: ALBUMIN 1.9 g/dL (3.2-5.0); TOTAL PROTEIN 4.7 g/dL (6.3-8.2)
--- NOTE | 2021-10-21 14:26 | NUR ---
PATIENT ALERT AND ORIENTED X3. NO DISTRESS RESPIRATORY AT THIS TME. ADMINISTER MEDICATIONS ACCORDING TO MAR. REGIS ROUANGELIC EVERY HOUR.
--- NOTE | 2021-10-21 20:00 | NUR ---
PATIENT RESTING IN BED AT THIS TIME-AWAKE ALERT AND ORIENTEDX3. PATIENT WITH NO COMPLAINTS AT THIS TIME. PATIENT WITH GASPAR CATH PATENT AND DRAINING YELLOW URINE. MAGNUS DRAIN TO RIGHT ABD INTAACT WITH SMALLL AMT OF SEROSANGUNOUS FLUID. ABD DRESSING IS CLEAN DRY AND INTACT. ABD IS SOFT WITH ACTIVE BS. PATIENT STATES THAT SHE IS PASSING FLATUS PER RECTUM. IVF NS WITH 20MEQ OF KCL PATENT AND INFUSING VIA LEFT FOREARM IV SITE AT 100CC/HR. SITE REMAINS HEALTHY AT THIS TIME. PATIENT ASKING TO EAT-EXPLAINED TO PATIENT MAYBE T[place]OW-TODAY STILL ONLY ICE CHIPS AND SIPS OF H2O WITH MEDS. PATIENT ASSISTED OOB TO THE RECLINER-PATIENT SLOW BUT STEADY. USING IS WITH MUCH ENCOURAGEMENT-ABLE TO DEMONSTRATE PROPER USE OF THE DEVICE. ENCOURAGED CDB EXERCISES. SAFETY PRECAUTIONS REINFORCED. CALL LIGHT IN REACH. WILL CONT TO MONITOR.
[2021-10-22] VITALS (7 sets, daily range): BP systolic 122–139; BP diastolic 56–69
--- NOTE | 2021-10-22 | NUR ---
PATIENT BACK IN BED AT THIS TIME WITH MIN ASSIST. ZOSYN INFUSING ORDERED. CALL LIGHT IN REACH. WILL CONT TO MONITOR.
--- NOTE | 2021-10-22 04:26 | NUR ---
RESTING IN BED AT THIS TIME WITH EYES CLOSED. RESPS ARE EVEN AND UNLABORED. IVF PATENT AND INFUSING VIA LEFT FOREARM SITE AT 100CC/HR. GASPAR PATENT AND DRAINING YELLOW URINE. ABD BINDER IN PLACE. SCD'S IN PLACE. CALL LIGHT IN REACH. WILL CONT TO MONITOR.
[2021-10-22 05:54] LABS: HEMATOCRIT 23.7 % (37.0-47.0); HEMOGLOBIN 7.5 g/dl (12.0-16.0); MEAN CELL VOLUME 95.6 fL CALC (80.0-100.0); MEAN CORPUSCULAR HGB 30.2 pG CALC (26.0-32.0); MEAN CORPUSCULAR HGB CONC 31.6 g/dL CAL (32.0-36.0); RED BLOOD COUNT 2.48 mill/uL (4.20-5.60); RED CELL DISTRI WIDTH 14.3 % (11.5-15.5)
[2021-10-22 06:25] LABS: ANION GAP 11 (6-22 (CALC)); BUN 10 mg/dL (8-23); BUN/CREATININE RATIO 14 (12-20 (CALC)); CARBON DIOXIDE 20 mmol/l (22-30); CHLORIDE 107 mmol/l (95-108); CREATININE 0.7 mg/dL (0.5-1.0); GFR > 60 ML/MIN (>=60 (CALC)); GFR FOR AFR.AMER. > 60 ML/MIN (>=60 (CALC)); MAGNESIUM 1.7 mg/dL (1.6-2.3); POTASSIUM 3.7 mmol/l (3.5-5.1); SODIUM 135 mmol/l (137-146)
--- NOTE | 2021-10-22 08:13 | NUR ---
RECEIVE REPORT FROM LICO. RN PATIENT ALERT AND ORIENTED X3. GOOD RESPIRATORY PATTERN AT THIS TIME. NO REPORT PAIN OR DISCONFORT. BOWELS SOUNDS ACTIVE. DRESSING CLEAN. ROUDS PREVENTIVE EVERY HOUR FOR FALL PRECUTIONS AND PATIENT SATISFACTION.
--- NOTE | 2021-10-22 14:35 | NUR ---
Dressing changed for verbal medical order.
--- NOTE | 2021-10-22 20:00 | NUR ---
PATIENT RESTING IN BED AT THIS TIME-EASY TO AROUSE, ALERT AND ORIENTEDX3. IVF NS 20KCL PATENT AND INFUSING VIA LEFT FOREARM SITE AT 100CC/HR. PATIENT STARTED ON CLEAR LIQUIDS TODAY ABD TOLERATING WELL. ABD DRESSING IS CDI WITH ABD BINDER IN PLACE. MAGNUS DRAIN IN PLACE WUTH SCANT AMT OF SEROSANGUINOUS FLUID. ABD SOFT WITH BS+. SCD'S IN PLACE IN BED. ENCOURAGED USE OF IS Q1H WHILE AWAKE. DEEP BREATHING ENCPOURAGED. PATIENT WAS INCONT OF MODERATE AMT OF STOOL.PERICARE PROVIDED WITH SOAP AND WATER. SAFETY PRECAUTIONS REINFORCED. CALL LIGHT IN REACH. WILL CONT TO MONITOR.
--- NOTE | 2021-10-22 22:24 | NUR ---
PATIENT RESTING IN BED AT THIS TIME-EASY TO AROUSE. ALERT AND ORIENTEDX3. IVF NS 20KCL PATENT AND INFUSING VIA LEFT FOREARM SITE AT 100CC/HR. PATIENT STARTED ON CLEAR LIQUIDS TODAY AND TOLERATING WELL. ABD DRESSING IS CDI WITH ABD BINDER IN PLACE. MAGNUS DRAIN IN PLACE WITH SCANT AMT OF SERSANGUINOUS FLUID. ABD IS SOFT WITH BS+. SCD'S IN PLACE IN BED. ENCOURAGED USE OF IS Q1H WHILE AWAKE. DEEP BREATHING EXERCISES ENCOURAGED. SAFETY PRECAUTIONS REINFORCED. CALL LIGHT IN REACH. WILL CONT TO MONITOR
[2021-10-23] VITALS: BP 131/60
--- NOTE | 2021-10-23 01:32 | NUR ---
RESTING IN BED-ZOSYN HUNG ORDERED VIA LEFT FOREARM SITE. INCONT OF MODERATE AMT OF URINE-PERICARE PROVIDED. MAGNUS DRAIN IN PLACE. CALL LIGHT IN REACH. WILL CONT TO MONITOR.
[2021-10-23 04:00] VITALS: BP 139/65
--- NOTE | 2021-10-23 04:29 | NUR ---
PATIENT RESTING IN BED AT THIS TIME. EYES CLOSED AND RESPS EVEN AND UNLABORED. ABD DRESSING CDI AT THIS TIME. ABD BINDER IN PLACE. IVF PATENT AND INFUSING VIA LEFT FOREARM AT 100CC/HR. MAGNUS DRAIN DRAINING ONLY SCANT AMT OF SEROSANGUINOUS FLUID. CALL LIGHT IN REACH.WILL CONT TO MONITOR.
--- NOTE | 2021-10-23 05:36 | NUR ---
PATIENT ASSIST OOB TO THE BSC TO VOID-ALREADY INCONT OF URINE. VOID SMALL AMT OF U RINE ON BSC. ASSIST TO THE RECLINER. REFUSING LABS AT THIS TIME. PATIENT WAS INFORMED THAT SHE NEED LAB WORK DRAWN DUE TO LOW H&H YESTERDAY-NEEDS TO RE-EVAL THIS MORNING. IVF PATENT AND INFUSING VIA LEFT FOREARM SITE AT 100CC/HR. ENCOURAGED IS Q1H WHILE AWAKE. ENCOURAGED INCREASED ACTIVITY. CALL LIGHT IN REACH. WILL CONT TO MONITOR.
[2021-10-23 06:24] LABS: HEMOGLOBIN 7.9 g/dl (12.0-16.0); IMMATURE GRANULOCYTES 1.1 % (0.0-5.0); MEAN CELL VOLUME 95.4 fL CALC (80.0-100.0); MEAN CORPUSCULAR HGB 30.2 pG CALC (26.0-32.0); MEAN CORPUSCULAR HGB CONC 31.6 g/dL CAL (32.0-36.0); NEUT# 12.91 thou/uL (2.00-7.15); RED BLOOD COUNT 2.62 mill/uL (4.20-5.60); RED CELL DISTRI WIDTH 14.2 % (11.5-15.5)
--- NOTE | 2021-10-23 06:38 | NUR ---
PATIENT SITTING UP IN THE RECLINER AT THIS TIME-WANTS TO GO BACK TO BED BUT ENCOURAGED TO STAY UP. MAGNUS EMPTIED FOR 30CC OF DROWNISH RED FLUIDS. IVF PATENT AND INFUSING VIA LEFT FOREARM SITE. CALL LIGHT IN REACH. WILL CONT TO MONITOR.
[2021-10-23 07:00] LABS: ALBUMIN 2.1 g/dL (3.2-5.0); ALKALINE PHOSPHATASE 76 u/l (38-126); ANION GAP 10 (6-22 (CALC)); BILIRUBIN, TOTAL 0.6 mg/dL (0.0-1.4); BUN 6 mg/dL (8-23); BUN/CREATININE RATIO 12 (12-20 (CALC)); CARBON DIOXIDE 22 mmol/l (22-30); CHLORIDE 108 mmol/l (95-108); CREATININE 0.5 mg/dL (0.5-1.0); GFR > 60 ML/MIN (>=60 (CALC)); GFR FOR AFR.AMER. > 60 ML/MIN (>=60 (CALC)); POTASSIUM 3.5 mmol/l (3.5-5.1); SGOT/AST 22 u/l (9-36); SODIUM 136 mmol/l (137-146); TOTAL PROTEIN 5.1 g/dL (6.3-8.2)
[2021-10-23 07:54] VITALS: BP 142/63
--- NOTE | 2021-10-23 08:30 | NUR ---
PT IN RECLINER. NO DISTRESS NOTED. PT DENIES PAIN AT THE MOMENT. EVEN AND UNLABORED RESPIRATIONS. HYPOACTIVE BOWEL SOUNDS UPON AUSCULTATION. PT HELPED BACK TO BED. CALL LIGHT WITHIN REACH.
--- NOTE | 2021-10-23 12:00 | NUR ---
PT SITTING IN BED IN LOW METCALF'S PISITION ACCOMPANIED BY VISITOR. NO DISTRESS NOTED. PT DENIES PAIN AT THE MOMENT. CALL LIGHT WITHIN REACH.
[2021-10-23 15:52] VITALS: BP 132/66
--- NOTE | 2021-10-23 16:00 | NUR ---
PT SITTING IN LOW METCALF'S POSITION. NO DISTRESS NOTED. PT DENIES PAIN AT THE MOMENT. IV HEALTHY AND PATENT. CALL LIGHT WITHIN REACH.
--- NOTE | 2021-10-23 18:30 | NUR ---
PT IN BED. NO DISTRES NOTED. MAGNUS DRAIN REMOVED; 25CC OF SEROSANGUINEOUS DRAINAGE NOTED BEFORE REMOVAL. INTACT. 2X2 WITH DRESSING APPLIED. ABD DRESSING CHANGED. ABD BINDER REAPPLIED. PT C/O OF PAIN. PT TO BE MEDICATED PER PRN ORDERS. CALL LIGHT WITHIN REACH.
--- NOTE | 2021-10-23 19:00 | NUR ---
PATIENT LAYING IN BED AT THIS TIME. PATIENT STATED HER PAIN LEVEL IS A 1 DUE TO BEING MEDICATED RECENTLY. PATIENT PRESENTS WIHT DRY DRESSING AND DRY DRESSING ON MAGNUS DRAIN SITE THAT WAS PULLED ON PREVIOUS SHIFT. PATIENT ENCOURAGED TO GET UP AND MOVE AROUND AND PATIENT STATED "I AM NOT GOING TO DO ANYTHING ELSE TONIGHT". TAMPING MACHINE OPERATOR ROAD FORMS DONE SEE INTERVENTIONS SIDERAILS ARE UP CALL LIGHT WIHTIN REACH. WILL CONTINUE TO MONITOR.
[2021-10-23 20:08] VITALS: BP 139/69
--- NOTE | 2021-10-24 00:02 | NUR ---
PATIENT LAYING IN BED AT THIS TIME. PATIENT DENIES ANY NEEDS AND OR PAIN. SIDERAILS ARE UP X 2 CALL LIGHT WITHIN REACH. WILL CONTINUE TO MONITOR.
--- NOTE | 2021-10-24 04:28 | NUR ---
PATIENT RESTING IN BED AT THIS TIME. PATIENT DEINES ANY NEED AND OR PAIN AT THIS TIME. BINDER REMAINS ON AND DRESSINGS ARE DRY AND INTACT. SIDERAILS ARE UP X 2 CALL LIGHT GERTRUDEHECTOR BREWER. WILL CONTINUE TO MONITOR.
[2021-10-24 04:38] VITALS: BP 155/71
[2021-10-24 05:59] LABS: ANION GAP 9 (6-22 (CALC)); BUN 3 mg/dL (8-23); BUN/CREATININE RATIO 7 (12-20 (CALC)); CARBON DIOXIDE 26 mmol/l (22-30); CHLORIDE 103 mmol/l (95-108); CREATININE 0.5 mg/dL (0.5-1.0); GFR > 60 ML/MIN (>=60 (CALC)); GFR FOR AFR.AMER. > 60 ML/MIN (>=60 (CALC)); MAGNESIUM 1.5 mg/dL (1.6-2.3); POTASSIUM 3.2 mmol/l (3.5-5.1); SODIUM 134 mmol/l (137-146)
[2021-10-24 06:17] LABS: HEMOGLOBIN 7.7 g/dl (12.0-16.0); MEAN CELL VOLUME 94.5 fL CALC (80.0-100.0); MEAN CORPUSCULAR HGB 30.3 pG CALC (26.0-32.0); MEAN CORPUSCULAR HGB CONC 32.1 g/dL CAL (32.0-36.0); RED BLOOD COUNT 2.54 mill/uL (4.20-5.60); RED CELL DISTRI WIDTH 14.3 % (11.5-15.5)
[2021-10-24 08:14] VITALS: BP 133/69
--- NOTE | 2021-10-24 08:30 | NUR ---
PT IN RECLINER. EVEN AND UNLABORED RESPIRATIONS; CLEAR LUNG SOUNDS. ACTIVE BOWEL SOUNDS X4 QUADRANTS. ABDOMINAL DRESSING AND BINDER IN PLACED. NO DISTRESS NOTED. PT C/O ABDOMINAL PAIN 310 AND STATES SHE DOES NOT WANT TO TAKE ANYTHING FOR PAIN AT THE MOMENT. IV SITE HEALTHY AND PATENT. CALL LIGHT WITHIN REACH.
--- NOTE | 2021-10-24 12:00 | NUR ---
PT IN BED IN LOW METCALF'S POSITION. PT HELP TO REPOSITION IN BED. NO DISTRESS NOTED. PT DENIES PAIN AT THE MOMENT. ABDOMINAL DRESSING CDI; BINDER IN PLACE. CALL LIGHT WITHIN REACH.
[2021-10-24 15:13] VITALS: BP 122/60
--- NOTE | 2021-10-24 18:25 | NUR ---
PT SITTING IN BED, HAVING DINNER. NO DISTRESS NOTED. PT C/O ABDOMINAL PAIN 12/01. DR. PRAJAPATI NOTIFIED AND ORDERED TYLENOL 650 MG FOR PAIN. ABDOMINAL DRESSING CDI; BINDER IN PLACE. IV SITE HEALTHY AND PATENT. CALL LIGHT WITHIN REACH.
[2021-10-24 19:36] VITALS: BP 139/66
--- NOTE | 2021-10-24 20:00 | NUR ---
RECEIVED REPORT [facility] NURSE KRISTINE, PATIENT RESTING IN BED WATCHING TV, C/O PAIN ON ABDOMEN PS 01/01, PATIENT ONGOING IV NS W/ 20MEQ NS @ 50CC/HR INFUSING WELL, DENIES NAUSEA, CLEAR LUNG SOUNDS, ACTIVE BM, LBM 10/24, REINFORCE ON THE USE OF SPIROMETER INSPIRATORY VOLUME 1000, NEW DRESSING APPLIED, BINDER IN PLACE, CALL LIGHT AT REACH.
[2021-10-25] VITALS (8 sets, daily range): BP systolic 116–149; BP diastolic 63–80
--- NOTE | 2021-10-25 00:38 | NUR ---
PATIENT RESTING IN BED, DUE ZOSYN GIVEN, DENIES PAIN CALL LIGHT AT REACH.
--- NOTE | 2021-10-25 04:21 | NUR ---
PATIENT RESTING IN BED,EYES CLOSED, BREATHING EVEN UNLABORED, NO DISCOMFORTS NOTED AT THIS TIME.
[2021-10-25 06:16] LABS: HEMATOCRIT 23.3 % (37.0-47.0); HEMOGLOBIN 7.4 g/dl (12.0-16.0); MEAN CORPUSCULAR HGB 29.8 pG CALC (26.0-32.0); MEAN CORPUSCULAR HGB CONC 31.8 g/dL CAL (32.0-36.0); RED BLOOD COUNT 2.48 mill/uL (4.20-5.60); RED CELL DISTRI WIDTH 14.2 % (11.5-15.5)
[2021-10-25 06:23] LABS: ANION GAP 10 (6-22 (CALC)); BUN 3 mg/dL (8-23); BUN/CREATININE RATIO 6 (12-20 (CALC)); CARBON DIOXIDE 26 mmol/l (22-30); CHLORIDE 101 mmol/l (95-108); CREATININE 0.5 mg/dL (0.5-1.0); GFR > 60 ML/MIN (>=60 (CALC)); GFR FOR AFR.AMER. > 60 ML/MIN (>=60 (CALC)); MAGNESIUM 1.8 mg/dL (1.6-2.3); POTASSIUM 3.6 mmol/l (3.5-5.1); SODIUM 133 mmol/l (137-146)
--- NOTE | 2021-10-25 06:45 | NUR ---
REPORT RECIEVED FROM ELI ASHRAF. CARE ASSUMED.
--- NOTE | 2021-10-25 08:00 | NUR ---
PATIENT RESTING IN BED AWAKE. PATIENT IS ALERT AND ORIENTED X3. SHIFT ASSESSMENT COMPLETED AT THIS TIME. IV PATENT X1. PATIENT REPORTS IMPROVEMENT INPAIN. CALL LIGHT IN REACH. WILL CONTINUE OT MONITOR.
--- NOTE | 2021-10-25 10:45 | NUR ---
ONE UNIT OF PRBCS INFUSING AT THIS TIME.
--- NOTE | 2021-10-25 13:42 | NUR ---
PATIENT SITTING UP IN RECLINER AT THIS TIME. RESP ARE EVEN AND UNLABORED. NO DISTRESS NOTED. CALL LIGHT IN REACH. WILL CONTINUE TO MONITOR
--- NOTE | 2021-10-25 15:48 | NUR ---
S- Pt stated she may go home tomorrow. Feels a little better after transfusion 0- Pt OOB in recliner, legs elevated. She was able to ambulated with RW 2x40' with Supervision, Gait was slow with flexed posture, without LOB noted. LE ex performed in sitting 2 x 10 reps. Written ex given to pt for HEP. BP 130/60, 116/70, HR 81-95-86, 02 sats 97-98%. Pt was left in chair, legs elevated call anand/phone and tray in reach CONSUMER LOAN MANAGER present. A- [facility] 15 home with home health P- Will follow per POC until D/C.
--- NOTE | 2021-10-25 16:00 | NUR ---
PATIENT SITTING UP IN RECLINER AT BEDSIDE. RESP ARE EVEN UNLABORED. NO DISTRESS NOTED. CALL LIGHT IN REACH. WILL CONTINUE TO MONITOR.
--- NOTE | 2021-10-25 19:00 | NUR ---
RECIEVED REPORT FROM [facility]
--- NOTE | 2021-10-25 20:00 | NUR ---
PT RESTING IN SEMI FOWLERS POSITION. PT IS A/OX3. ASSESSMENT AND VITALS COMPLETED. RESPIRATIONS ARE EVEN AND UNLABORED ON ROOM AIR. LUNG SOUNDS CLEAR. HEART RHYTHM NORMAL WITH TELE IN PLACE. BOWEL SOUNDS ACTIVE. #22G RFA INFUSING WITH IVF PER ORDER, SITE PATENT. DRESSING TO MIDLINE AND ABD REMAINS CDI. PT COMPLAINS OF 4/10 ABD PAIN, PT TO BE MEDICATED PER EMAR. PT DENIES OF ANY ADDITIONAL NEEDS. PT INFROMED OF NEEDED STOOL, SUPPLIES PROVIDED. ALL SAFTEY PRECAUTIONS IN PLACE WITH CALL LIGHT IN REACH. WILL CONTINUE TO MONITOR.
--- NOTE | 2021-10-25 23:59 | NUR ---
PT ASSITED TO BSC AND BACK INTO BED. RESPIRATIONS EVEN AND UNLABORED ON ROOM AIR. IVF INFUSING PER ORDER, SITE REMAINS HEALTHY AND PATENT. PT DENIES OF ANY ADDITIONAL NEEDS AT THIS TIME. ALL SAFTEY PRECAUTIONS ARE IN PLACE WITH CALL LIGHT IN REACH. WILL CONTINUE TO MONITOR.
[2021-10-26 04:00] VITALS: BP 149/63
--- NOTE | 2021-10-26 04:51 | NUR ---
PT SITTING IN RECYLINER. RESPIRATIONS EVEN AND UNLABORED ON ROOM AIR. #22G RFA INFUSING WITH IVF PER ORDER, SITE HEALTHY AND PATENT. PT DENIES OF ANY PAINS OR DISCOMFORTS AT THIS TIME. ALL SAFTEY PRECAUTIONS ARE IN PLACE WITH CALL LIGHT IN REACH. WILL CONTINUE TO MONITOR.
[2021-10-26 05:26] LABS: MEAN CELL VOLUME 91.2 fL CALC (80.0-100.0); MEAN CORPUSCULAR HGB 29.4 pG CALC (26.0-32.0); MEAN CORPUSCULAR HGB CONC 32.2 g/dL CAL (32.0-36.0); RED BLOOD COUNT 3.3 mill/uL (4.20-5.60); RED CELL DISTRI WIDTH 14.6 % (11.5-15.5)
[2021-10-26 05:39] LABS: HEMATOCRIT 30.1 % (37.0-47.0); HEMOGLOBIN 9.7 g/dl (12.0-16.0)
[2021-10-26 05:45] LABS: ANION GAP 13 (6-22 (CALC)); BUN 3 mg/dL (8-23); BUN/CREATININE RATIO 6 (12-20 (CALC)); CARBON DIOXIDE 25 mmol/l (22-30); CHLORIDE 99 mmol/l (95-108); CREATININE 0.5 mg/dL (0.5-1.0); GFR > 60 ML/MIN (>=60 (CALC)); GFR FOR AFR.AMER. > 60 ML/MIN (>=60 (CALC)); MAGNESIUM 1.7 mg/dL (1.6-2.3); POTASSIUM 3.4 mmol/l (3.5-5.1); SODIUM 133 mmol/l (137-146)
[2021-10-26] MEDS ORDERED: PERCOCET1 TA4 PO (09:35)
[2021-10-26] MEDS ORDERED: KLOR-CON M2020 MEQ PO (10:03)
[2021-10-26 11:43] VITALS: BP 149/63
--- NOTE | 2021-10-26 12:35 | NUR ---
S- I am going home at 2:00 today. 0- Pt resting in bed. She performed bed mobility with modified indep using bed rail. Sit to and from stand was with supervision. She ambulated 2 x 60' with SBA using RW, gait remains slow with slight flexed posture. Pt requested use of BS commode and was left on potty with call anand in reach and BLOOD BANK SUPERVISOR waiting for her. BP 120/60, HR 85,02 sats 93-95%. Time spent with pt 30 min. A- [facility] 14 home with home health. P- Follow until D/C
[2021-10-31] MEDS ORDERED: MAGNESIUM500 M1 PO (12:06)
[2021-10-31] MEDS ORDERED: ONDANSETRON4 MG PO (12:06)
== END 2021-10-26 14:42 | DRG 330 ==
LOC: ED 18:06 → ED-I 22:30 → ED 22:53 → MS2 22:54
PROVIDERS: Emergency Medicine; Internal Medicine; Nurse Practitioner; Nurse Practitioner Family; ADMIT Hospitalist; ATTEND Internal Medicine
PROC: 0DQN0ZZ Repair Sigmoid Colon, Open Approach (ICD-10-PCS; principal; 2021-10-20)
PROC: 0UQG0ZZ Repair Vagina, Open Approach (ICD-10-PCS; 2021-10-20)
PROC: 30233N1 Transfusion of Nonautologous Red Blood Cells into Peripheral Vein, Percutaneous Approach (ICD-10-PCS; 2021-10-25)
DX: N82.3 Fistula of vagina to large intestine (principal); E87.1 Hypo-osmolality and hyponatremia; E87.6 Hypokalemia; E83.42 Hypomagnesemia; I10 Essential (primary) hypertension; E78.5 Hyperlipidemia, unspecified; D64.9 Anemia, unspecified; R31.9 Hematuria, unspecified; K21.9 Gastro-esophageal reflux disease without esophagitis; Z90.49 Acquired absence of other specified parts of digestive tract; Z87.891 Personal history of nicotine dependence; Z20.822 Contact with and (suspected) exposure to COVID-19
CPT/HCPCS: A9537; J0131; J1650; J2805; J3475; P9016

== ENCOUNTER 2024-04-26 09:58 | Emergency (ER) | payer MEDICARE, MEDICAID ==
[2024-04-26] VITALS (29 sets, daily range): BP systolic 82–126; BP diastolic 28–66
[~2024-04-26] VITALS: Ht 165.1 cm; Wt 62.5 kg
[~2024-04-26 09:58] MED LIST changes: +KLOR-CON M2020 MEQ PO; +MAGNESIUM500 M1 PO; +PERCOCET1 TA4 PO
[2024-04-26] MEDS ORDERED: ACETAMINOPHEN 500 MG TAB PO ONE (10:10)
[2024-04-26 10:39] LABS: URINE BILIRUBIN - DIPSTICK Negative (NEGATIVE); URINE BLOOD DIPSTICK Trace-intact (NEGATIVE); URINE GLUCOSE - DIPSTICK Negative (NEGATIVE); URINE KETONE Negative (NEGATIVE); URINE LEUK ESTERASE Negative (NEGATIVE); URINE NITRITE - DIPSTICK Negative (Negative); URINE PROTEIN - DIPSTICK 30 mg/dL (NEG-TRACE); URINE SPECIFIC GRAVITY 1.015; URINE UROBILINOGEN - DIPSTICK 0.2 E.U./dL (0.2)
[2024-04-26 10:40] LABS: BASO% 0.1 % (0-3); EOS% 0.1 % (0-8); HEMATOCRIT 29.4 % (37.0-47.0); HEMOGLOBIN 9.1 g/dl (12.0-16.0); IMMATURE GRANULOCYTES 0.2 % (0.0-5.0); LYMPH% 2.3 % (15-41); MEAN CELL VOLUME 84.2 fL CALC (80.0-100.0); MEAN CORPUSCULAR HGB 26.1 pG CALC (26.0-32.0); MONO% 0.8 % (2-13); NEUT# 9.46 thou/uL (2.00-7.15); NEUT% 96.5 % (42-76); RED BLOOD COUNT 3.49 mill/uL (4.20-5.60); RED CELL DISTRI WIDTH 18.3 % (11.5-15.5)
[2024-04-26 10:46] LABS: URINE COLOR Yellow; URINE EPITHELIAL CELLS FEW EPI/hpf (0-FEW); URINE MUCUS FEW hpf (NONE-FEW); URINE RBC 0-2 RBC/hpf (0-5)
[2024-04-26 10:52] LABS: ALKALINE PHOSPHATASE 86 u/l (38-126); ANION GAP 12 (6-22 (CALC)); BILIRUBIN, TOTAL 0.6 mg/dL (0.02-1.3); BUN 16 mg/dL (8-23); BUN/CREATININE RATIO 12 (12-20 (CALC)); CARBON DIOXIDE 18 mmol/l (22-30); CHLORIDE 109 mmol/l (95-108); CREATININE 1.3 mg/dL (0.5-1.0); ESTIMATED GFR 42 ML/MIN (>=90 (CALC)); LIPASE 105 u/l (23-300); POTASSIUM 4.4 mmol/l (3.5-5.1); SGOT/AST 32 u/l (9-36); SODIUM 135 mmol/l (137-146)
[2024-04-26 10:53] LABS: ALBUMIN 4.5 g/dL (3.2-5.0)
[2024-04-26] MEDS ORDERED: SODIUM CHLORIDE 0.9% 1,000 ML IV ONE (12:40)
--- NOTE | 2024-04-27 09:30 | NUR ---
PRELIMINARY BLOOD CULTURE RESULTS SHOWING GRAM - RODS IN 1/[address] SANON. VIA DR SANON CONTACT PT AND HAVE THEM COME BACK TO THE HOSPITAL. UNABLE TO REACH PT x 2. WAS ABLE TO REACH PT CONTACT DAUGHTER ENZO. DAUGHTER STATES SHE IS THE ONE THAT BROUGHT HER MOTHER IN TO THE HOSPITAL YESTERDAY. DAUGHTER STATES THAT SHE WILL BRING PT INTO HOSPITAL THIS AFTERNOON. DAUGHTER LIVES 1 HOUR AWAY AND WILL BRING PT IN. VIA DR SANON THE PT CAN GO TO THE [facility]ARE[facility]. DAUGHTER STATES THAT SHE WILL CONSIDER A CLOSER HOSPITAL BUT MAY JUST COME TO [facility]. VIA DAUGHTER PT HAD A FEVER OF 100F THIS AM AND THUS TOOK TYLENOL. MD AWARE OF CONVERSATION. WILL FOLLOW UP WITH FINAL CULTURE RESULTS
--- NOTE | 2024-04-28 10:00 | NUR ---
UNABLE TO REACH PT WITH FINAL CULTURE RESULTS. WAS ABLE TO REACH PT'S DAUGHTER WHO IS HER CONTACT. VIA DAUGHTER PT IS AT [facility] AND [facility] IS STATING THAT THEY ARE HAVING TROUBLE GETTING A HOLD OF DM. GAVE DAUGHTER OUT NUMBER TO GIVE TO NURSE INCHARGE OF PT SO THEY CAN CONTACT US AND GET CULTURE RESULTS. WILL FOLLOW UP LATER TODAY IF I HAVE NOT HEARD BACK FROM THE HOSPITAL.
--- NOTE | 2024-04-28 11:37 | NUR ---
FAXING CULTURE RESULTS TO [facility] WHERE PT IS CURRENTLY ADMITTED. CULTURE SHOWS KLEBSIELLA AEROGENES IN 1 BOTTLE WITH SUSCEPTABILITIES. UNABLE TO REACH PT. SPOKE TO PT'S DAUGHTER WHO IS CURRENTLY AT [facility] WITH HER MOTHER. INFORMED HER THAT CULTURE RESULTS WERE FAXED. CONFIRMED NURSE IN CHARGE OF PT IS NURSE STEVENSON. FAXED CULTURE RESULTS TO NURSE STEVENSON AT [facility] FAX:[phone]
== END 2024-04-26 17:26 | disposition home or self-care (01) ==
LOC: ED 09:58
PROVIDERS: Family Medicine
DX: R50.9 Fever, unspecified (principal); I10 Essential (primary) hypertension; K21.9 Gastro-esophageal reflux disease without esophagitis; E78.5 Hyperlipidemia, unspecified; F41.9 Anxiety disorder, unspecified; F17.210 Nicotine dependence, cigarettes, uncomplicated; Z20.822 Contact with and (suspected) exposure to COVID-19